=== PATIENT | female | born 1980 | race Caucasian/White ===

== ENCOUNTER → 2016-12-12 | Outpatient (CLI) | payer OTHER ==
--- NOTE | 2016-12-12 14:30 | Diagnostic Imaging Report ---
INDICATION: Incomplete survey, follow-up spine without previous exam performed at an outside facility. TECHNIQUE: Multiple real-time grayscale images were obtained over the gravid uterus. COMPARISON: None. FINDINGS: heart rate is 138 beats per minute. The placenta is posterior. There is no placenta previa. The position is cephalic with the head obscuring portion of the cervix. Amniotic fluid index is 8.5 cm. The spine is well seen at this time with no underlying abnormality. IMPRESSION: Live intrauterine . The spine is seen with no abnormality identified. Dictated by: Dictated on workstation # [id number]
== END ==
LOC: RAD 10:12
PROVIDERS: ATTEND Obstetrics & Gynecology
DX: Z36 Encounter for antenatal screening of mother (principal)
CPT/HCPCS: 76805

== ENCOUNTER → 2017-01-27 | Outpatient (CLI) | payer OTHER ==
[~2017-01-27] MED LIST: CHOL40003 PO; CYAN50TA3 PO; FERR-65 PO; LEVO125T PO; OMEG-33 PO; PREN1TAB86 PO
--- NOTE | 2017-01-27 14:14 | Diagnostic Imaging Report ---
INDICATION: Followup growth and amniotic fluid index. TECHNIQUE: Multiple real-time grayscale images were obtained over the gravid uterus. COMPARISON: 12/12/2016. FINDINGS: The cervix is closed and measures 3.7 cm. Single live intrauterine at 33 weeks 4 days by today's sonographic measurements. EDC by today's ultrasound is 03/13/2017. growth appears concordant with the provided last menstrual cycle dates. The abdominal circumference does measure small for the patient's age, in the 12th percentile. Grade 2 placenta is located within the fundus but no placenta previa. heart rate measures 133 beats per minute. presentation is cephalic. Biometrical measurements are as follows: Biparietal 8.33 cm, age 33 weeks 4 days. Head circumference 31.58 cm, age 35 weeks 4 days. Abdominal circumference 27.68 cm, age 31 weeks 6 days. Femur length 6.38 cm, age 33 weeks 0 days. Sonographic estimate age: 33 weeks 4 days. Sonographic estimated date of delivery: 03-13-17. Estimated Weight: 2016 gm (+/- 294 gm). LMP percentile: 23%. heart rate: 133 beats per minute. number: 1 of 1. IMPRESSION: 1. Single live intrauterine at 33 weeks 4 days by today's sonographic measurements. 2. Abdominal circumference is borderline small within the 12th percentile. Recommend clinical correlation. Dictated by: Dictated on workstation # [id number]
== END ==
LOC: RAD 13:00
PROVIDERS: ATTEND Obstetrics & Gynecology
DX: O99.283 Endocrine, nutritional and metabolic diseases complicating pregnancy, third trimester (principal); Z3A.33 33 weeks gestation of pregnancy
CPT/HCPCS: 76816

== ENCOUNTER → 2017-02-18 | Outpatient (CLI) | payer OTHER ==
--- NOTE | 2017-02-18 14:27 | Diagnostic Imaging Report ---
INDICATION: Small for gestational age. TECHNIQUE: Multiple real-time grayscale images were obtained over the gravid uterus. COMPARISON: 12/12/2016 and 01/27/2017. FINDINGS: The previous OB ultrasound exam of 01/27/2017 noted a single live fetus of approximately 33 weeks 4 days gestation. On the prior exam, the abdominal circumference measurement was borderline small and the measurement fell within the 12th percentile. On this exam, the abdominal circumference is 30.16 and is estimated to be in the 7th percentile. This could be secondary to asymmetric IUGR. There were no abnormalities identified. The biophysical profile score is 8/8 and within normal limits. The growth parameters average 35 weeks 1 day, +/-3 weeks. By the first exam, the estimated gestational age should be 36 weeks 3 days. The estimated weight is in the 42nd percentile. The placenta is fundal, and there is no previa. The amniotic fluid volume is 13.1 cm (normal 8-22 cm). Biometrical measurements are as follows: Biparietal 8.77 cm, age 35 weeks 3 days. Head circumference 30.66 cm, age 34 weeks 2 days. Abdominal circumference 30.16 cm, age 34 weeks 1 days. Femur length 7.15 cm, age 36 weeks 5 days. Sonographic estimate age: 35 weeks 1 days. Sonographic estimated date of delivery: 03/24/2017. Estimated Weight: 2557 gm (+/- 373 gm). LMP percentile: 17%. heart rate: 156 beats per minute. number: 1 of 1. IMPRESSION: 1. There is a single live fetus of approximately 36 weeks 3 days gestation, +/-2 weeks. The EDC remains March 15, 2017. 2. There were no abnormalities identified. The biophysical profile score is also within normal limits. 3. The abdominal circumference measurement continues to lag behind other measurements and is in the 7th percentile. The possibility of asymmetric IUGR should be considered. Dictated by: Dictated on workstation # [id number]
== END ==
LOC: RAD 13:16
PROVIDERS: ATTEND Obstetrics & Gynecology
DX: Z36 Encounter for antenatal screening of mother (principal); Z3A.36 36 weeks gestation of pregnancy
CPT/HCPCS: 76805; 76819

== ENCOUNTER → 2017-11-05 | Outpatient (CLI) | payer OTHER ==
--- NOTE | 2017-11-05 16:18 | Diagnostic Imaging Report ---
CLINICAL INDICATION: Follow-up thyroid nodules. Hypothyroidism. COMPARISONS: Ultrasound of the thyroid gland dated 12/28/2015. FINDINGS: THYROID NODULES: There is a 6 mm slightly heterogeneous hypoechoic nodule within the upper portion of the right thyroid gland which is stable. There is a 2 mm hypoechoic nodule involving the inferior portion of the left thyroid gland which is not significantly changed. THYROID GLAND: Besides the thyroid nodules, the thyroid gland has normal size, shape and echogenicity. The right lobe measures 5.4 cm x 1.6 cm x 1.4 cm and the left lobe measures 5.2 cm x 1.1 cm x 1.2 cm in their three dimensions. ISTHMUS: The isthmus is unremarkable and measures 3 mm in thickness. IMPRESSION: 1. Stable 6 mm nodule in the right thyroid gland and 2 mm nodule in the left thyroid gland. Otherwise, the remainder of the thyroid gland is unremarkable. Dictated by: Dictated on workstation # [id number]
== END ==
LOC: RAD 12:53
PROVIDERS: ATTEND Family Medicine
DX: E04.2 Nontoxic multinodular goiter (principal); E03.9 Hypothyroidism, unspecified
CPT/HCPCS: 76536

== ENCOUNTER → 2020-08-17 | Outpatient (CLI) | payer OTHER ==
--- NOTE | 2020-08-17 12:40 | Diagnostic Imaging Report ---
PROCEDURE: US right lower extremity venous. TECHNIQUE: Multiple real-time grayscale images were obtained over the right lower extremity in various projections. Additional spectral analysis and color Doppler duplex images were also obtained. INDICATION: Right lower extremity pain and swelling EXAMINATION: Grayscale and color Doppler evaluation of the deep veins of the right lower extremity were performed with waveform analysis. FINDINGS: Continuous venous flow is present. No intraluminal filling defect is identified. There is normal compressibility and response to augmentation. No abnormal perivascular fluid collection is identified. IMPRESSION: No ultrasound evidence of right lower extremity deep venous thrombosis. Dictated by: Dictated on workstation # [id number]
== END ==
LOC: RAD 11:59
PROVIDERS: ATTEND Family Medicine
DX: M79.651 Pain in right thigh (principal)

== ENCOUNTER → 2022-09-17 | Outpatient (CLI) | payer BC ==
--- NOTE | 2022-09-17 13:06 | Diagnostic Imaging Report ---
EXAM: LUMBAR SPINE - 2-3 VIEWS INDICATION: Low back pain. COMPARISON: 07/27/2015 FINDINGS: Normal alignment. Vertebral body heights are preserved. No substantial spondylotic change. No fractures. Visualized pelvis is intact. IMPRESSION: No substantial spondylotic change. No acute radiographic findings in the lumbar spine. Dictated by: Dictated on workstation # [id number]
== END ==
LOC: RAD 09:57
PROVIDERS: ATTEND Family Medicine
DX: M54.50 Low back pain, unspecified (principal)
CPT/HCPCS: 72100